=== PATIENT | male | born 1955 | race Caucasian/White ===

== ENCOUNTER 2016-12-06 09:19 | Day surgery (SDC) | payer BC ==
[2016-12-04 14:04] VITALS: BMI 32.5
[~2016-12-06 09:19] MED LIST: LACTATED RINGERS 1,000 ML IV SCH; LIDOCAINE 1% 20 ML VIAL (10MG/ML) FOR IV START INTRADERMA PRN
[2016-12-06 10:14] VITALS: TEMP 98.5
[2016-12-06] MEDS ORDERED: PROPOFOL 10 MG/ML 20 ML VIAL IV ONE (10:54)
[2016-12-06] MEDS ORDERED: LIDOCAINE 1% INJ 10MG/ML (20 ML MDV) ONE (10:54)
--- NOTE | 2016-12-06 11:15 | P.PCN ---
Date of Procedure: 12/06/16 Procedure(s) Performed: BRIEF HISTORY: Patient is a 61-year-old pleasant white male, scheduled for an elective colonoscopy as a part of evaluation of prior history of colon polyps. Last colonoscopy was 3 years ago and was noted to have 5 polyps all of which were tubular adenoma. PROCEDURE PERFORMED: Colonoscopy with biopsy PREOPERATIVE DIAGNOSIS: History of colon polyps. IV sedation per Anesthesia. PROCEDURE: After informed consent was obtained, the patient, was brought into the endoscopy unit. IV sedation was administered by Anesthesia under continuous monitoring. Digital rectal examination was normal. Initially the Olympus CF- 160 flexible video colonoscope was then inserted in the rectum, gradually advanced into the cecum without any difficulty. Careful examination was performed as the scope was gradually being withdrawn. Ileocecal valve and the appendiceal orifice were visualized and appeared normal. Prep was excellent. Mucosa of the cecum, ascending colon appeared normal. In the transverse colon there was a 5 mm polyp that was removed by biopsy. Also there was a 5 mm polyp in the descending colon and in the rectal sigmoid colon that was removed by biopsy. The rest of the transverse colon, descending colon, sigmoid colon, and rectum appeared normal. Retroflexion was performed in the rectum and no lesions were seen. The patient tolerated the procedure well. IMPRESSION: 5 mm transverse colon polyp status post biopsy 5 mm descending colon polyp status post removal by biopsy 5 mm rectosigmoid polyp serous was biopsy RECOMMENDATIONS: Findings of this examination were discussed with the patient as well as his family. He was advised to follow with the biopsy results. If the biopsy shows a tubular adenoma he can have a repeat colonoscopy in 5 years.
[2016-12-06 11:21] VITALS: BP 104/65
[2016-12-06 11:40] VITALS: PULSE 58; RESP 18
== END 2016-12-06 11:57 | disposition home or self-care (01) ==
LOC: ORWHC2ENDO 09:19
PROVIDERS: ATTEND Internal Medicine Gastroenterology
DX: Z12.11 Encounter for screening for malignant neoplasm of colon (principal); D12.3 Benign neoplasm of transverse colon; K63.5 Polyp of colon; K62.1 Rectal polyp; Z86.010 Personal history of colon polyps; Z88.1 Allergy status to other antibiotic agents
CPT/HCPCS: 45380; 88305; J2001; J2704

== ENCOUNTER 2024-09-22 11:23 | Day surgery (SDC) | payer MEDICARE, BC ==
[2024-09-19 11:06] VITALS: BMI 30.2
[2024-09-22] MEDS: LACTATED RINGERS 1,000 ML IV SCH (11:45)
[2024-09-22] MEDS: LIDOCAINE 1% (10MG/ML) FOR IV START INTRADERMA STA (11:45)
[2024-09-22] MEDS: IV FLUID CONTINUATION 1,000 ML IV ONE (11:45)
[2024-09-22 11:56] VITALS: TEMP 97.3
[2024-09-22] MEDS ORDERED: PROPOFOL 10 MG/ML 20 ML VIAL IV ONE (12:05)
[2024-09-22] MEDS ORDERED: LIDOCAINE 1% INJ 10MG/ML (20 ML MDV) ONE (12:05)
[2024-09-22 12:35] LABS: Basophils # (A) 0.08 10*3/uL (0.00-0.10); Basophils % (A) 1.9 %; Eosinophils # (A) 0.26 10*3/uL (0.04-0.35); Eosinophils % (A) 6.3 %; HCT 25.7 % (39.6-50.0); HGB 9.1 g/dL (13.0-17.0); Immature Platelet Fraction 5.2 % (1.1-6.1); Lymphocytes # (A) 1.27 10*3/uL (0.90-5.00); Lymphocytes % (A) 30.9 %; MCH 34.9 pg (27.0-32.0); MCHC 35.4 g/dL (32.0-37.0); MCV 98.5 fL (80.0-97.0); Monocytes # (A) 0.75 10*3/uL (0.20-1.00); Monocytes % (A) 18.2 %; Neutrophils # (A) 1.67 10*3/uL (1.80-7.70); Neutrophils % (A) 40.8 %; Platelet Count 247 10*3/uL (140-440); RBC 2.61 10*6/uL (4.40-5.60); RDW 24.8 % (11.5-14.5); WBC 4.11 10*3/uL (4.50-10.00)
[2024-09-22 12:41] VITALS: RESP 16
[2024-09-22 12:58] VITALS: BP 109/80; PULSE 49
[2024-09-22 13:27] LABS: Anisocytosis (M) Present; Target Cells Present
[2024-09-22 13:32] LABS: Poikilocytosis (M) Present
--- NOTE | 2024-09-22 19:30 | OP ---
OPERATIVE REPORT DATE OF SERVICE : 09/22/2024 PROCEDURE: Bone marrow aspirate and biopsy. INDICATION: This patient with known MDS diagnosed 9 years ago. He has worsening anemia. DESCRIPTION OF PROCEDURE: After obtaining consent from the patient, the procedure was performed in the endoscopy suite under anesthesia performed by Anesthesia Team. The patient was put on the left lateral decubitus position. The right posterior superior iliac crest was localized. Skin was cleaned with ChloraPrep. All sterile procedures were followed. 2 mL of 2% Xylocaine was used for local anesthetic. and 2 cm core biopsy was obtained without any difficulty. Pressure applied afterwards. There was negligible blood loss. The patient tolerated the procedure very well without any immediate complications. MMODL / IJN: [id number] /
== END 2024-09-22 13:08 | disposition home or self-care (01) ==
LOC: OR 11:23
PROVIDERS: ATTEND Internal Medicine Hematology & Oncology
DX: D46.9 Myelodysplastic syndrome, unspecified (principal)
CPT/HCPCS: 85025; 85045; 38222; J2003; J2704